=== PATIENT | female | born 1990 | race Caucasian/White ===

== ENCOUNTER 2020-12-30 15:40 | Outpatient (REF) | payer MEDICAID, SELFPAY | END 2020-12-30 15:41 | disposition home or self-care (01) | LOC: HO.LAB 15:40 | PROVIDERS: Visit Provider Internal Medicine | DX: Z20.822 Contact with and (suspected) exposure to COVID-19 (principal) | CPT/HCPCS: 36415; C9803; U0003; U0005 ==

== ENCOUNTER 2023-11-03 12:44 | Emergency (ER) | payer OTHER, SELFPAY ==
[2023-11-03 12:50] VITALS: BP 122/62; PULSE 65; O2SAT 98
[2023-11-03 12:55] VITALS: BP 112/76; PULSE 74; RESP 16; TEMP 36.4; O2SAT 99; BMI 24.4
--- NOTE | 2023-11-03 13:35 | ED.GENADULT ---
HPI - General Adult General Chief complaint: General Medical Stated complaint: JANETTE PAIN,NO BM FOR DAYS PER EMS Time Seen by Provider: 11/03/23 13:01 Source: patient and EMS Mode of arrival: EMS Limitations: no limitations History of Present Illness HPI narrative: Patient is a 33-year-old female presenting to the emergency department via EMS with complaint of pain and swelling to vaginal area since Tuesday. She denies any discharge or drainage from the area. Denies any fevers/chills/body aches. Denies history of same in the past. States that she does shave this area at times. complaint: Vaginal pain Onset (ago): day(s) Location: genitals Severity: severe Quality: aching Pain Consistency: constant Relieving factors: rest Exacerbating factors: movement Associated symptoms: denies other symptoms Treatments prior to arrival: none Related Data Previous Rx's Medication Instructions Recorded amoxicillin 875 mg-potassium 1 tab PO BID #14 tabs 11/03/23 clavulanate 125 mg tablet sulfamethoxazole 800 1 tab PO BID #14 tabs 11/03/23 mg-trimethoprim 160 mg tablet (Bactrim DS) Allergies Allergy/AdvReac Type Severity Reaction Status Date / Time No Known Allergies Allergy Verified 11/03/23 12:55 Review of Systems Review of Systems: As per HPI. Yes all other systems are reviewed and are negative Constitutional: Constitutional: Reports as per HPI [facility] Social History Social History Smoked in Last 30 Days: No Use of substances other than those prescribed or required for medical reasons: No Advance Directives: No Physical Exam ED Vital Signs: Vital Signs - 24 hr 11/03/23 12:55 11/03/23 14:00 Temperature 97.5 F 98.3 F Pulse Rate 74 75 Respiratory Rate 16 18 Blood Pressure 112/76 103/68 Pulse Oximetry 99 99 Oxygen Delivery Method Room Air Room Air BMI result Body Mass Index 24.4 Vital signs have been reviewed and appear to be correct. Blood pressure normal. Heart rate normal. Respiratory rate normal. Temperature normal. Oxygen saturation normal. Const General: cooperative, healthy appearing and no acute distress Orientation/consciousness: oriented to person, oriented to place, oriented to time and patient oriented x3 Limitations: no limitations HENMT Head: Yes normocephalic and Yes atraumatic Ears: external ears normal General nose exam: Normal external nose present Face and sinus: Yes face symmetric Mouth: oropharynx normal and moist mucous membranes Throat: Yes uvula midline Eyes Pupils: Equal, round and reactive pupils present Neck Neck: Yes normal visual inspection and Yes supple Resp Effort & Inspection: normal respiratory effort and able to speak in complete sentences Auscultation: clear to auscultation bilaterally Cardio Rate: regular rate Rhythm: regular rhythm Heart sounds: S1 normal heart sound present and S2 normal heart sound present GI Palpation (GI): Soft to palpation and nontender Auscultation: normoactive bowel sounds Other: Exam chaperoned by LAKSHMI Vazquez. General: Yes no CVA tenderness External Female Exam: externally tender, external swelling and other (left labial swelling and tenderness) Back/Spine/Pelvis Back: no CVA tenderness Skin General skin exam: elasticity normal and turgor normal Neuro General: oriented to person, oriented to place, oriented to time, patient oriented x3, moves all extremities, no focal motor deficits and CN's II-XI intact bilaterally Cranial nerves: Yes Equal, round and reactive pupils present Cognition (Neuro): normal cognition Extrem General: Yes full ROM, Yes no pedal edema and Yes no calf tenderness Psych Mental Status: mental status grossly normal Affect: normal affect Thought process: Normal thought process present Medications Administered Discontinued Medications Generic Name Dose Route Start Last Admin Trade Name Freq PRN Reason Stop Dose Admin Diazepam 2.5 mg 11/03/23 14:16 11/03/23 14:29 Diazepam 10 Mg/2 Ml Cartridge IVPUSH 11/03/23 14:17 2.5 mg STAT STA Administration Lidocaine HCl 10 ml 11/03/23 14:19 11/03/23 14:33 Lidocaine Hcl 1 % Mpf 5 Ml Vial INFILTRATI 11/03/23 14:20 10 ml ONCE ONE Administration Procedures Abscess I/D Site: bartholin's gland Side (if applicable): left Sedation/analgesia: other (diazepam) Local Anesthetic: lidocaine 1% Amount of anesthesia used (mL): 5 Technique: incised with blade Amount of fluid expressed (mL): 5 Sent for culture/gram staining?: No Irrigation: Yes Packing used?: none Medical Decision Making Medical Decision Making MDM Narrative: Patient is a 33-year-old female presenting to the emergency department via EMS with complaint of pain and swelling to vaginal area since Tuesday. On exam patient is awake, A+Ox3, VS WNL, afebrile, normal neurological exam without focal deficits, physical exam findings as above. Given reported symptoms and physical exam findings, initial differential includes abscess of Bartholin gland, cellulitis. Incision and drainage performed as per procedure note by Dr. Montiel, patient tolerated well. Will prescribe Bactrim and Augmentin, refer to OBGYN for further management. Return precautions discussed with patient at bedside. Patient verbalized understanding of and agreement with plan. Differential Diagnosis Differential Diagnoses: The differential diagnosis associated with the presentation includes As per MDM. External Record Review External record reviewed: Inpatient record, Office record and Outpatient record Prescription Management I considered prescription management with: Antibiotic Discharge Plan Discharge Clinical Impression: Abscess of Bartholin's gland Patient Disposition: Home, Self-Care Instructions: Abscess (ED), Sitz Bath (DC), Abscess Follow-up (ED), Incision and Drainage (ED) Additional Instructions: You were evaluated in the emergency department today for pain and swelling to your vaginal area. You have an abscess of your Bartholin's gland which was incised and drained in the emergency department today. Please keep this area clean and dry. You are being prescribed antibiotics, please finish all of them even if your symptoms improve. You can also take Sitz baths to aid in the drainage. You are being referred to OBGYN, please call for follow-up appointment. Return to the emergency department if you develop worsening pain, increased swelling, excessive drainage or bleeding, fever 100.4? F or greater, persistent vomiting or any other concerning symptoms. Prescriptions: New sulfamethoxazole-trimethoprim [Bactrim DS] 800-160 mg tablet 1 tab PO BID Qty: 14 0RF amoxicillin-pot clavulanate 875-125 mg tablet 1 tab PO BID Qty: 14 0RF Referrals: Venkat Reyes MD [Physician] -
[2023-11-03 14:00] VITALS: BP 103/68; PULSE 75; RESP 18; TEMP 36.8; O2SAT 99
[2023-11-03] MEDS: diazePAM 10 MG/2 ML CARTRIDGE 2.5 MG IVPUSH (14:29)
[2023-11-03] MEDS: Lidocaine HCl 1 % MPF 5 ML VIAL 10 ML INFILTRATI (14:33)
[2023-11-03 15:47] VITALS: BP 121/85; PULSE 70; RESP 16; TEMP 36.3; O2SAT 97
== END 2023-11-03 15:48 | disposition home or self-care (01) ==
PROVIDERS: Emergency Provider Emergency Medicine
DX: N75.0 Cyst of Bartholin's gland (principal); Z79.899 Other long term (current) drug therapy
CPT/HCPCS: 56420; 96374; 99284; J3360

== ENCOUNTER 2025-05-29 03:47 | Emergency (ER) | payer OTHER, SELFPAY ==
--- NOTE | 2025-05-29 | ECG_ITS ---
Test Reason : CP Blood Pressure : */* mmHG Vent. Rate : 53 BPM Atrial Rate : 53 BPM P-R Int : 142 ms QRS Dur : 78 ms QT Int : 430 ms P-R-T Axes : 62 56 32 degrees QTcB Int : 403 ms Sinus bradycardia Otherwise normal ECG No previous ECGs available Referred By: Generic ED Physician Electronically Signed By: SUSHILA KEITA MD
--- NOTE | ~2025-05-29 | CT_ITS ---
EXAMINATION: CT ANGIOGRAM CHEST CLINICAL INFORMATION: Right-sided chest pain. COMPARISON: None available. TECHNIQUE: Multiple axial images were obtained through the chest after the administration of 65 mL of Omnipaque 350 intravenous contrast. Extensive vascular post-processing including two-dimensional and three-dimensional reformatted images were created and reviewed on an independent workstation. SmartPrep technique. DLP: [address] examination was performed using dose optimization techniques as appropriate, variously including the following: *Automated exposure control *Adjustment of mA and/or kV according to patient size (this includes techniques or standardized protocols for targeted exams where dose is matched to indication/reason for exam; i.e. extremities or head) *Use of iterative reconstruction technique FINDINGS: Main pulmonary artery and its main left and right branches and subsegmental pulmonary artery branches demonstrated normal patency without intraluminal filling defects. No gross aneurysm or dissection, thoracic aorta. No lymphadenopathy, mediastinum or perihilar. No pericardial effusion. Linear attenuation abnormality, left lung base, lingula and right middle lung lobe. There is a 5 mm thick wall gasfield cyst, right lower lung lobe. No gross pulmonary nodule. The upper airway is patent. No pleural effusion. No pneumothorax. No calcified pleural plaques. No acute fracture or listhesis in the axial skeleton. Sternum is intact. Scapula is intact. No acute rib fracture. Included clavicles are intact. Degenerative changes in the right glenohumeral joint. CT/CT angio chest PE protocol IMPRESSION: No acute pulmonary artery emboli. No aneurysm or dissection, thoracic aorta. Subsegmental atelectasis versus scarring, lingula. 5 mm thick wall cavitary lesion, right lower lung lobe. Nonspecific. Consider prior inflammatory versus infectious process. Fleischner guidelines were followed. Electronically signed by: Marques Ramirez MD 05/29/2025 11:26 AM EDT
--- NOTE | ~2025-05-29 | XR_ITS ---
CLINICAL HISTORY: back chest pain Exam: PA and lateral views of the chest. Comparison: None provided. Findings: Lungs are well inflated. Mediastinal contours, cardiac silhouette, and pulmonary vasculature within normal limits. No focal areas of consolidation. No rib fracture, pneumothorax, or pleural effusion. Impression: No acute findings. This document has been electronically signed by: Giovani Delgado MD on 05/29/2025 06:10:33
[2025-05-29 04:03] VITALS: BP 108/57; BP 130/66; PULSE 55; PULSE 58; RESP 16; TEMP 35.6; O2SAT 100; O2SAT 98; BMI 26.2
[2025-05-29 04:28] LABS: Hematocrit 32.7 % (37.0-47.0); Hemoglobin 11.3 g/dl (12.0-16.0); Imm Gran Abs Auto 0.01 X10*3/uL (0.00-0.03); Imm Gran Pct Auto 0.1 % (0.0-0.4); Lymphocytes Absolute Auto 2.5 X10*3/uL (1.2-4.9); MANUAL DIFF FLAG NO; Mean Corpuscular HGB Conc 34.6 g/dl (31.0-35.0); Mean Corpuscular Hemoglobin 30.0 pg (27.0-33.0); Mean Corpuscular Volume 86.7 fL (80.0-98.0); NRBC Abs Auto 0.000 X10*3/uL (0.0-0.012); NRBC Pct Auto 0.0 /100WBC (0.0-0.2); Platelet Count 190 X10*3/uL (160-400); Red Blood Count 3.77 X10*6/uL (4.20-5.50); White Blood Count 7.5 X10*3/uL (4.8-10.8)
[2025-05-29 04:42] LABS: Alanine Aminotransferase 11 U/L (0-31); Albumin Level 3.9 g/dL (3.5-5.0); Alkaline Phosphatase 65 U/L (39-117); Anion Gap 12 (12-20); Aspartate Amino Transferase 18 U/L (5-31); Blood Urea Nitrogen 13 mg/dL (9-16); Calcium 8.5 mg/dL (8.4-10.2); Carbon Dioxide 22 mmol/L (22-29); Chloride 110 mmol/L (96-108); Creatinine Clr Calc Pharmacy 105.2; Estimated Glomerular Filt Rate > 60; Potassium 3.7 mmol/L (3.3-5.1); Sodium 140 mmol/L (135-145); Total Protein 6.4 g/dL (6.5-8.0)
--- OUTSIDE RECORDS SUMMARY | 2025-05-29 04:47 | XMS_ITS | Clinical Summary ---
Author Organization [facility] Address [address] [place] [address] Phone Care Team Providers Care Grounds Cleaner Name Role Phone Unavailable Primary Care Provider Unavailabl e Immunizations Immunization Administration Dates Next Due DTP 12/28/1993, 0,1989,1988,1989 Hep B, ped/adol 01/24/2003,05/29/2002,11/14/2001 Hib (PRP-T) 10/06/1990 IPV 12/28/1993, 0,1989,1988 MMR 11/14/2001,04/05/1990 Td (adult) (MBL), 2 Lf tetan us toxoid, PF, adsorbed 11/14/2001 Social History Tobacco Use Types Packs/Day Years Used Date Smoking Tobacco: Never Assessed Comments Unknown Sex and Gender Information Value Date Recorded Sex Assigned at Not on file Legal Sex Female 4:45 PM EDT Gender Identity Not on file Sexual Orientation Not on file Plan of Treatment Health Maintenance Due Date Last Done Comments DTaP,Tdap,and Td Vaccines (6 - Tdap) 11/15/2001 11/14/2001, 12/28/1993, 10/06/1990, Additional history exists Varicella Vaccines (1 of 2 - 13+ 2-dose series) 2002 HPV Vaccines (1 - 3-dose SCDM series) 02/03/2016 COVID-19 Vaccine ( season) 2024 Influenza Vaccines (#1) 2025 HIB Vaccines Completed 10/06/1990 IPV Vaccines Completed 12/28/1993, 09/10, 1989, Additional history exists MMR Vaccines Completed 11/14/2001, 04/05/1990 Hepatitis B Vaccines Completed 01/24/2003, 05/29/2002, 11/14/2001 Hepatitis A Vaccines Aged Out No long er eligible based on patient's age to complete this topic Men B Vaccine Aged Out No longer elig ible based on patient's age to complete this topic Meningococcal Vaccine Aged Out No toina maye eligible based on patient's age to complete this topic Pneumococcal Vaccine Aged Out No long er eligible based on patient's age to complete this topic
[2025-05-29 04:50] LABS: Troponin-I High Sensitivity < 2.7 ng/L (<3.5-17.0)
[2025-05-29 04:55] VITALS: BP 108/57; PULSE 55; RESP 16; TEMP 35.6; O2SAT 98
[2025-05-29 07:26] VITALS: BP 108/57; PULSE 55; RESP 16; TEMP 35.6; O2SAT 98
--- NOTE | 2025-05-29 07:41 | ED.GENADULT ---
HPI - General Adult General Chief complaint: Back Pain/Injury Stated complaint: back pain radiating to chest Time Seen by Provider: 05/29/25 07:26 Source: patient and EMS Mode of arrival: EMS Limitations: no limitations History of Present Illness ED Provider: DR. Monique HPI narrative: 35-year-old female otherwise healthy came in for evaluation of right upper back pain started since last night, pain has been constant, partial relief after was given fentanyl by EMS. Patient declined a heavy lifting, or strenuous activity, no productive cough, patient's symptoms started after she was bending down to dress her pants. Pain with taking deep breath or movement. No fever, no chills, no recent travel, no lower extremity swelling or tenderness, no hematuria, no dysuria, no frequency urination. Related Data Previous Rx's ?Medication ?Instructions ?Recorded amoxicillin 875 mg-potassium 1 tab PO BID #14 tabs 11/03/23 clavulanate 125 mg tablet sulfamethoxazole 800 1 tab PO BID #14 tabs 11/03/23 mg-trimethoprim 160 mg tablet (Bactrim DS) cyclobenzaprine 10 mg tablet 10 mg PO TID PRN muscle spasm #14 05/29/25 tabs ibuprofen 600 mg tablet 600 mg PO TID PRN pain #20 tabs 05/29/25 Allergies Allergy/AdvReac Type Severity Reaction Status Date / Time No Known Allergies Allergy Verified 05/29/25 04:06 Review of Systems Review of Systems: All other systems are reviewed and are negative Constitutional: Reports as per HPI and Reports no additional constitutional complaints Eyes: Reports as per HPI and Reports no additional eye complaints Reports system reviewed and no additional complaints, except as documented Cardiovascular: Reports as per HPI and Reports no additional cardiovascular complaints Respiratory: Reports as per HPI and Reports no additional respiratory complaints Gastrointestinal: Reports as per HPI and Reports no additional gastrointestinal complaints Genitourinary: Reports no additional female genitourinary complaints Musculoskeletal: Reports no additional musculoskeletal complaints Skin/Breast: Reports system reviewed and no additional complaints, except as docu Psychiatric: Reports no additional psychiatric complaints Endocrine: Reports no additional endocrine complaints Hematologic/Lymphatic: Reports no additional hematologic/lymphatic complaints Allergic/Immunologic: Reports no additional allergic/immunologic complaints Reports system reviewed and no additional complaints, except as documented and Reports Abnormal speech present PENDING SALE TO [facility] Social History Social History Smoked in Last 30 Days: No Use of substances other than those prescribed or required for medical reasons: Yes Substance Use Type: Marijuana Advance Directives: No Advance Directives Information Provided: No Do you have a plan to hurt others: No Plan Physical Exam ED Vital Signs: Vital Signs - 24 hr 05/29/25 04:03 05/29/25 04:55 05/29/25 07:26 Temperature 96.1 F L 96.1 F L 96.1 F L Pulse Rate 55 55 55 Respiratory Rate 16 16 16 Blood Pressure 108/57 L 108/57 L 108/57 L Pulse Oximetry 98 98 98 Oxygen Delivery Method Room Air Room Air Room Air 05/29/25 08:19 Temperature Pulse Rate 56 Respiratory Rate 14 Blood Pressure 108/56 L Pulse Oximetry 96 Oxygen Delivery Method Room Air BMI result Body Mass Index 26.2 Vital signs have been reviewed and appear to be correct. Blood pressure elevated. Heart rate normal. Respiratory rate normal. Temperature normal. Oxygen saturation normal. Appearance: Alert. Oriented X3. No acute distress. Head: Normal external exam. Normocephalic. Atraumatic. No Weathers signs noted. No raccoon eyes noted Eyes: PERRLA. EOMI. Conjunctiva and sclera normal. Eyelids normal. ENT: TM's Normal. Pharynx normal. Uvula midline. Moist mucous membranes. No trismus noted. No drooling noted. No muffled voice noted. Neck: Normal inspection. Neck supple. FROM. No adenopathy. Thyroid Normal. No meningeal signs. No neck mass noted. CVS: Normal heart rate and rhythm. Heart sound normal. No murmurs noted. Pulses normal throughout. Respiratory: No respiratory distress. Painless inspiration. Breath sounds normal. No wheezes/rales/rhonchi noted. Tenderness over right scapular area with reproducible tenderness, no step-off, no deformity. No accessory muscle usage noted or decreased air movement noted. Abdomen: Soft and nontender. Bowel sounds normal in all 4 quadrants. No distention noted. No organomegaly noted. No visible injury noted. Back: No CVA tenderness. Full range of motion noted. Skin: Skin warm and dry. Normal skin color. Normal skin turgor. No rashes/lesions/lacerations noted. Extremities: No lower extremity edema. Extremities exhibit normal range of motion. Extremities nontender. Neuro: Oriented X 3. Cranial nerve exam: II-XII are grossly intact No motor deficit. No sensory deficit. Reflexes normal. Course Reevaluation(s) Reevaluation #1: Right scapular pain, appeared to be muscular related pain, patient with negative D-dimer, cardiac workup including CT angio of the chest are negative patient lack the risks for having CAD or pulmonary embolism. Will consider NSAIDs and muscle relaxant. Time: 11:29 Medications Administered Discontinued Medications Generic Name Dose Route Start Last Admin Trade Name Sabrina PRN Reason Stop Dose Admin Iohexol 100 ml 05/29/25 11:03 05/29/25 11:06 Iohexol 350 Mg/Ml 100 Ml Infus..Btl IV 05/29/25 11:04 65 ml ONCE ONE Administration Ketorolac Tromethamine 15 mg 05/29/25 07:39 05/29/25 07:53 Ketorolac Tromethamine 15 Mg/Ml Vial IVPUSH 05/29/25 07:40 15 mg ONCE ONE Administration Morphine Sulfate 1 mg 05/29/25 07:39 05/29/25 07:53 Morphine Sulfate 2 Mg/Ml Cartridge IVPUSH 05/29/25 07:40 1 mg ONCE ONE Administration Protocol Medical Decision Making Differential Diagnosis Differential Diagnoses: The differential diagnosis associated with the presentation includes (ACS, pneumonia, pneumothorax, pleural effusion, rib fracture, myofascial pain, electrolyte derangement, severe anemia.) Admission/Observation Consideration of admission/observation: Escalation of care including admission/observation considered Lab Data MDM Lab Attestation statement: I reviewed the patient's lab results. 05/29/25 04:23 05/29/25 04:23 Labs: Lab Results 05/29/25 05/29/25 05/29/25 Range/Units 04:23 07:52 08:12 WBC 7.5 (4.8-10.8) X10*3/uL RBC 3.77 L (4.20-5.50) X10*6/uL Hgb 11.3 L (12.0-16.0) g/dl Hct 32.7 L (37.0-47.0) % MCV 86.7 (80.0-98.0) fL MCH 30.0 (27.0-33.0) pg MCHC 34.6 (31.0-35.0) g/dl RDW 12.9 (11.0-16.0) % Plt Count 190 (160-400) X10*3/uL MPV 10.6 (9.4-12.3) fL Immature Gran % (Auto) 0.1 (0.0-0.4) % Neut % (Auto) 58.2 (45-73) % Lymph % (Auto) 33.3 (20-40) % [place] % (Auto) 6.9 (2-11) % Eos % (Auto) 0.8 (0-4) % Baso % (Auto) 0.7 (0-2) % Lymph # (Auto) 2.5 (1.2-4.9) X10*3/uL [place] # (Auto) 0.5 (0.1-1.2) X10*3/uL Eos # (Auto) 0.1 (0.0-0.4) X10*3/uL Baso # (Auto) 0.1 (0.0-0.2) X10*3/uL Abs Immat Gran (auto) 0.01 (0.00-0.03) X10*3/uL Absolute Neuts (auto) 4.4 (2.0-8.3) x10*3/uL Absolute Nucleated RBC 0.000 (0.0-0.012) X10*3/uL Nucleated RBC % (auto) 0.0 (0.0-0.2) /100WBC D-Dimer High Sensitivty 194 NG/ML Sodium 140 (135-145) mmol/L Potassium 3.7 (3.3-5.1) mmol/L Chloride 110 H (96-108) mmol/L Carbon Dioxide 22 (22-29) mmol/L Anion Gap 12 (12-20) BUN 13 (9-16) mg/dL Creatinine 0.68 (0.5-1.4) mg/dL Estim Creat Clear Calc 105.2 Estimated GFR > 60 Random Glucose 93 (60-115) mg/dL Calcium 8.5 (8.4-10.2) mg/dL Total Bilirubin 0.3 (0.0-1.0) mg/dL Direct Bilirubin 0.1 (0.0-0.5) mg/dL AST 18 (5-31) U/L ALT 11 (0-31) U/L Alkaline Phosphatase 65 (39-117) U/L Total Creatine Kinase 44 (26-140) U/L Troponin I High Sens < 2.7 < 2.7 (<3.5-17.0) ng/L Total Protein 6.4 L (6.5-8.0) g/dL Albumin 3.9 (3.5-5.0) g/dL Lipase 23 (8-78) U/L Beta HCG, Quant < 2 mIU/mL Urine Opiates Screen Not Detected (Not Detect) Ur Buprenorphine Scrn Not Detected (Not Detect) ng/mL Ur Oxycodone Screen Not Detected (Not Detect) ng/mL Urine Methadone Screen Not Detected (Not Detect) ng/mL Urine Fentanyl Screen POSITIVE H (Not Detect) Ur Barbiturates Screen Not Detected (Not Detect) Ur Phencyclidine Scrn Not Detected (Not Detect) Ur Amphetamines Screen Not Detected (Not Detect) U Benzodiazepines Scrn Not Detected (Not Detect) Urine Cocaine Screen Not Detected (Not Detect) U Marijuana (THC) Screen POSITIVE H (Not Detect) Independent Interpretation I performed an independent interpretation of an: CT Scan (CT angiogram:No acute pulmonary artery emboli. No aneurysm or dissection, thoracic aorta. Subsegmental atelectasis versus scarring, lingula. 5 mm thick wall cavitary lesion, right lower lung lobe. Nonspecific. Consider prior inflammatory versus infectious process. ) Radiology Impression Discussion of test interpretation with radiology: I have reviewed the radiologist's reading. Discharge Plan Discharge Clinical Impression: Thoracic back pain, Strain of thoracic back region Patient Disposition: Home, Self-Care Instructions: Thoracic Back Strain (ED) Additional Instructions: Rest, heating pad, take the prescribed medicine as instructed, no heavy lifting. Prescriptions: New cyclobenzaprine 10 mg tablet 10 mg PO TID PRN (Reason: muscle spasm) Qty: 14 0RF ibuprofen 600 mg tablet 600 mg PO TID PRN (Reason: pain) Qty: 20 0RF No Action sulfamethoxazole-trimethoprim [Bactrim DS] 800-160 mg tablet 1 tab PO BID Qty: 14 0RF amoxicillin-pot clavulanate 875-125 mg tablet 1 tab PO BID Qty: 14 0RF Print Language: Hebrew
[2025-05-29 08:19] VITALS: BP 108/56; PULSE 56; RESP 14; O2SAT 96
[2025-05-29 08:21] LABS: Cannabinoid Screen Urine POSITIVE (Not Detect)
[2025-05-29 08:30] LABS: D Dimer High Sensitivity 194 NG/ML
[2025-05-29 08:30] LABS: Lipase 23 U/L (8-78)
[2025-05-29 08:42] LABS: Troponin-I High Sensitivity < 2.7 ng/L (<3.5-17.0)
[2025-05-29] MEDS: iohexoL 350 MG/ML 100 ML INFUS..BTL IV (11:06)
[2025-05-29 12:19] VITALS: BP 108/56; PULSE 56; RESP 14; TEMP -17.7; TEMP 0; O2SAT 96
== END 2025-05-29 12:20 | disposition home or self-care (01) ==
PROVIDERS: Emergency Provider Emergency Medicine
DX: M79.18 Myalgia, other site (principal); M25.511 Pain in right shoulder; S39.012A Strain of muscle, fascia and tendon of lower back, initial encounter; X58.XXXA Exposure to other specified factors, initial encounter; Y93.89 Activity, other specified; Y92.89 Other specified places as the place of occurrence of the external cause; Y99.8 Other external cause status
CPT/HCPCS: 36415; 71046; 71275; 80053; 80307; 82248; 82550; 83690; 84484; 84702; 85025; 85379; 93005; 96374; 96375; 99284; 99285; J1885; J2270; Q9967

== ENCOUNTER → 2025-05-29 04:00 | Outpatient (BNV) | payer OTHER, SELFPAY | PROVIDERS: Visit Provider Radiology Diagnostic Radiology | DX: J98.4 Other disorders of lung (principal); R07.9 Chest pain, unspecified | CPT/HCPCS: 71046; 71275 ==

== ENCOUNTER → 2025-05-29 04:34 | Outpatient (BNV) | payer OTHER, SELFPAY | PROVIDERS: Emergency Provider Emergency Medicine; Visit Provider Internal Medicine Cardiovascular Disease | DX: R00.1 Bradycardia, unspecified (principal) | CPT/HCPCS: 93010 ==

== ENCOUNTER 2025-08-22 13:57 | Outpatient (REF) | payer OTHER, SELFPAY ==
[2025-08-22 14:06] LABS: MANUAL DIFF FLAG NO
[2025-08-22 14:33] LABS: Hematocrit 38.7 % (37.0-47.0); Hemoglobin 13.2 g/dl (12.0-16.0); Imm Gran Abs Auto 0.03 X10*3/uL (0.00-0.03); Imm Gran Pct Auto 0.3 % (0.0-0.4); Lymphocytes Absolute Auto 1.7 X10*3/uL (1.2-4.9); Mean Corpuscular HGB Conc 34.1 g/dl (31.0-35.0); Mean Corpuscular Hemoglobin 29.8 pg (27.0-33.0); Mean Corpuscular Volume 87.4 fL (80.0-98.0); NRBC Abs Auto 0.000 X10*3/uL (0.0-0.012); NRBC Pct Auto 0.0 /100WBC (0.0-0.2); Platelet Count 255 X10*3/uL (160-400); Red Blood Count 4.43 X10*6/uL (4.20-5.50); White Blood Count 9.2 X10*3/uL (4.8-10.8)
[2025-08-22 15:37] LABS: Alanine Aminotransferase 17 U/L (0-31); Albumin Level 4.8 g/dL (3.5-5.0); Alkaline Phosphatase 61 U/L (39-117); Anion Gap 12 (12-20); Aspartate Amino Transferase 21 U/L (5-31); Blood Urea Nitrogen 13 mg/dL (9-16); Calcium 9.5 mg/dL (8.4-10.2); Carbon Dioxide 24 mmol/L (22-29); Chloride 108 mmol/L (96-108); Estimated Glomerular Filt Rate > 60; Potassium 3.7 mmol/L (3.3-5.1); Sodium 140 mmol/L (135-145); Total Protein 7.9 g/dL (6.5-8.0)
--- OUTSIDE RECORDS SUMMARY | 2025-08-22 17:22 | XMS_ITS | Clinical Summary ---
Author Organization [facility] Address [address] [place] [address] Phone Care Team Providers Care Intermodal Dispatcher Name Role Phone Unavailable Primary Care Provider [...] Vaccines (1 - 3-dose SCDM series) 02/03/2016 Influenza Vaccines (#1) 2025 COVID-19 Vaccine (2024- season) 2025 HIB Vaccines Completed 10/06/1990 IPV Vaccines [...] this topic Meningococcal Vaccine Aged Out No tonia maye eligible based on patient's age to complete this topic Pneumococcal Vaccine Aged Out No long er eligible based on patient's age to complete this topic
--- OUTSIDE RECORDS SUMMARY | 2025-08-22 17:22 | XMS_ITS | Clinical Summary ---
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 Name Role Phone Clarissa Gonsalez MD Primary Care Provider [phone] Allergies No known active allergies Medications No known medications Active Problems No known active problems Social History Tobacco Use Types Packs/Day Years Used Date Smoking Tobacco: Never Smokeless Tobacco: Never Tobacco Cessation:Counseling Given: Not Answered Comments Unknown Sex and Gender Information Value Date Recorded Sex Assigned at Female 08/30/2024 3:14 PM EST Legal Sex Female 4:56 AM EST Gender Identity Female 08/30/2024 3:14 PM EST Sexual Orientation Straight 08/30/2024 3: 14 PM EST Obstetrics History Last Filed Vital Signs Vital Sign Reading Time Taken Comments Blood Pressure 105/73 08/30/2024 1:34 PM EST Pulse 96 08/30/2024 1:34 PM EST Temperature 36.6 C (97.9 F) 08/30/2024 1:34 PM EST Respiratory Rate 16 08/30/2024 1:34 PM EST Oxygen Saturation 98% 08/30/2024 1:34 PM EST Inhaled Oxygen Concentration - - Weight 66.7 kg (147 lb) 08/30/2024 1:34 PM EST Height 160 cm (5' 3 ) 08/30/2024 1:34 PM EST Body Mass Index 26.04 08/30/2024 1:34 PM EST Plan of Treatment Health Maintenance Due Date Last Done Comments Cervical Cancer Screening: Pap Smear 2010 HPV Vaccines (1 - 3-dose SCDM series) 02/03/2016 HIV Screening 09/12/2022 Hepatitis C Screening 09/12/2022 Social Influencers of Health Screening 09/12/2022 Depression Screening 10/10/2024 COVID-19 Vaccine ( season) 2025 Influenza Vaccine (#1) 2025 07/17/2018, 2013 DTaP,Tdap,and Td Vaccines (9 - Td or Tdap) 06/20/2028 06/20/2018, 02/13/2015, 11/14/2001, Additional history exists RSV Immunization Adult Patients (1 - 1-dose 75+ series) 02/03/2064 HIB Vaccines Completed 10/06/1990 IPV Vaccines Completed 12/28/1993, 09/10, 1989, Additional history exists MMR Vaccines Completed 11/14/2001, 04/05/1990 Hepatitis B Vaccines Completed 01/24/2003, 05/29/2002, 11/14/2001 Hepatitis A Vaccines Aged Out No long er eligible based on patient's age to complete this topic Meningococcal ACWY Vaccine Aged Out N o longer eligible based on patient's age to complete this topic Meningococcal B Vaccine Aged Out No l onger eligible based on patient's age to complete this topic Pneumococcal Vaccine: Pediatrics (0 to 5 Years) and At-Risk Patients (6 to 49 Years) Aged Out No longer eligible based on patient's age to complete this topic RSV Immunization Patients Under 20 months Aged Out No longer eligible based on patient's age to complete this topic Varicella Vaccines Aged Out No longer eligible based on patient's age to complete this topic Insurance MEDICAID - [place] Care Teams Vacuum Evaporation Operator Relationship Specialty Start Date End Date Clarissa Gonsalez MD [phone] [facility] [address] [place], [place] PCP - General Internal Medicine 11/30/17
== END 2025-08-22 13:58 | disposition home or self-care (01) ==
LOC: HO.LAB 13:57
PROVIDERS: PCP Internal Medicine; Visit Provider Internal Medicine
DX: L50.8 Other urticaria (principal); R21 Rash and other nonspecific skin eruption; R87.610 Atypical squamous cells of undetermined significance on cytologic smear of cervix (ASC-US)
CPT/HCPCS: 36415; 80053; 85025